=== PATIENT | male | born 1955 | race Caucasian/White ===

== ENCOUNTER 2018-11-18 15:17 | Emergency (ER) | payer MEDICARE, MEDICAID ==
[~2018-11-18] VITALS: Ht 175.3 cm; Wt 77.0 kg
[2018-11-18 16:03] LABS: BASOPHILS % (AUTO) 0.1 % (0-1); EOSINOPHILS # (AUTO) 0.1 X10'3 (0-0.9); EOSINOPHILS % (AUTO) 0.4 % (0-6); HEMOGLOBIN 13.2 g/dl (14.0-17.9); LYMPHOCYTES # (AUTO) 1.2 X10'3 (1.1-4.8); LYMPHOCYTES % (AUTO) 8.1 % (21-51); MEAN CORPUSCULAR HEMOGLOBIN 29.9 PG (27.0-31.0); MEAN CORPUSCULAR HGB CONC 32.9 g/dL (33.0-36.5); MEAN CORPUSCULAR VOLUME 90.7 FL (78-98); MEAN PLATELET VOLUME 8.4 FL (7.4-10.4); MONOCYTES # (AUTO) 1.8 X10'3 (0-0.9); MONOCYTES % (AUTO) 11.8 % (2-12); NEUTROPHILS # (AUTO) 12.1 X10'3 (1.8-7.7); NEUTROPHILS % (AUTO) 79.6 % (42-75); PLATELET COUNT 276 X10'3 (140-440); RED BLOOD COUNT 4.41 X10'6 (4.70-6.10); RED CELL DISTRIBUTION WIDTH 14.2 % (11.5-14.5); WHITE BLOOD COUNT 15.2 X10'3 (4.5-11.0)
[2018-11-18 16:18] LABS: INR 1.1 INR; PARTIAL THROMBOPLASTIN TIME 35 SECONDS (22-32); PROTHROMBIN TIME 11.3 SECONDS (9.0-12.0)
[2018-11-18 16:19] LABS: ALANINE AMINOTRANSFERASE 29 U/L (12-78); ALBUMIN 2.5 G/DL (3.4-5.0); ALBUMIN/GLOBULIN RATIO 0.5 (1.1-1.5); ALKALINE PHOSPHATASE 145 IU/L (46-116); ANION GAP 10 (8-16); ASPARTATE AMINO TRANSFERASE 23 U/L (10-37); BILIRUBIN,TOTAL 0.5 MG/DL (0.1-1.0); BLOOD UREA NITROGEN 40 MG/DL (7-18); BUN/CREATININE RATIO 27.6 (5.4-32.0); CALCIUM 9.3 MG/DL (8.5-10.1); CHLORIDE 103 MMOL/L (99-107); CREATININE 1.45 MG/DL (0.60-1.10); GLUCOSE 94 MG/DL (70-104); POTASSIUM 3.2 MMOL/L (3.5-5.1); SODIUM 139 MMOL/L (135-145); TOTAL CARBON DIOXIDE 25.9 MMOL/L (24-32); TOTAL PROTEIN 7.2 G/DL (6.4-8.2); eGFR 49 ML/MIN
[2018-11-18 16:42] LABS: TOTAL CELLS COUNTED 100
[2018-11-18 16:43] LABS: PLATELET ESTIMATE NORMAL; POIKILOCYTOSIS 1+; TOXIC GRANULATION 3+
[2018-11-18] MEDS ORDERED: ipratropium/albuterol 3ml nebule NEB ONE (18:05)
[2018-11-18] MEDS ORDERED: azithromycin/NS 500mg/250ml 250 ML IV ONE (18:30)
[2018-11-18] MEDS ORDERED: methylPREDNISolone sod succ 125mg/2ml vial IV ONE (18:30)
[2018-11-18] MEDS ORDERED: CefTRIAXone/D5W-Rocephin 1gm 50 ML IV ONE (18:30)
[2018-11-18] MEDS ORDERED: diphenhydrAMINE 50 mg/ml inj IV ONE (18:30)
[2018-11-18 20:35] VITALS: BP 101/60
--- NOTE | 2018-11-18 21:01 | NUR ---
pt tolerated zithromax and rocephin well. no reaction. let dr. melo know.
[2018-11-18] MEDS ORDERED: AZIT-63 PO (21:30)
[2018-11-18] MEDS ORDERED: CEFU500T66 PO (21:30)
== END 2018-11-18 21:47 | disposition home or self-care (01) ==
LOC: ER 15:18
DX: J18.9 Pneumonia, unspecified organism (principal); J44.9 Chronic obstructive pulmonary disease, unspecified; G89.29 Other chronic pain; Z86.73 Personal history of transient ischemic attack (TIA), and cerebral infarction without residual deficits; Z87.891 Personal history of nicotine dependence; Z88.0 Allergy status to penicillin; Z88.7 Allergy status to serum and vaccine; Z88.1 Allergy status to other antibiotic agents
CPT/HCPCS: 36415; 71046; 80053; 84484; 85025; 85610; 85730; 93005; 94640; 94760; 96365; 96366; 96368; 96375; 99284; J0456; J0696; J1200; J2930

== ENCOUNTER 2019-01-07 15:21 | Emergency (ER) | payer MEDICARE, MEDICAID ==
[~2019-01-07] VITALS: Ht 172.7 cm; Wt 81.8 kg
[~2019-01-07 15:21] MED LIST: CEFU500T66 PO
[2019-01-07 15:58] LABS: BASOPHILS # (AUTO) 0.1 X10'3 (0-0.2); BASOPHILS % (AUTO) 1.3 % (0-1); EOSINOPHILS # (AUTO) 0.7 X10'3 (0-0.9); EOSINOPHILS % (AUTO) 11.4 % (0-6); HEMATOCRIT 39.2 % (42.0-52.0); LYMPHOCYTES # (AUTO) 1.5 X10'3 (1.1-4.8); LYMPHOCYTES % (AUTO) 25.3 % (21-51); MEAN CORPUSCULAR HEMOGLOBIN 30.1 PG (27.0-31.0); MEAN CORPUSCULAR HGB CONC 33.2 g/dL (33.0-36.5); MEAN CORPUSCULAR VOLUME 90.5 FL (78-98); MEAN PLATELET VOLUME 7.9 FL (7.4-10.4); MONOCYTES # (AUTO) 0.6 X10'3 (0-0.9); MONOCYTES % (AUTO) 9.9 % (2-12); NEUTROPHILS # (AUTO) 3.1 X10'3 (1.8-7.7); NEUTROPHILS % (AUTO) 52.1 % (42-75); PLATELET COUNT 201 X10'3 (140-440); RED BLOOD COUNT 4.33 X10'6 (4.70-6.10); RED CELL DISTRIBUTION WIDTH 15.1 % (11.5-14.5)
[2019-01-07 16:14] LABS: ALANINE AMINOTRANSFERASE 27 U/L (12-78); ALBUMIN 3.7 G/DL (3.4-5.0); ALBUMIN/GLOBULIN RATIO 1.1 (1.1-1.5); ALKALINE PHOSPHATASE 82 IU/L (46-116); ANION GAP 8 (8-16); ASPARTATE AMINO TRANSFERASE 18 U/L (10-37); BILIRUBIN,TOTAL 0.3 MG/DL (0.1-1.0); BLOOD UREA NITROGEN 16 MG/DL (7-18); BUN/CREATININE RATIO 15.8 (5.4-32.0); CALCIUM 8.8 MG/DL (8.5-10.1); CHLORIDE 105 MMOL/L (99-107); CREATININE 1.01 MG/DL (0.60-1.10); GLUCOSE 89 MG/DL (70-104); POTASSIUM 3.9 MMOL/L (3.5-5.1); SODIUM 138 MMOL/L (135-145); TOTAL CARBON DIOXIDE 24.7 MMOL/L (24-32); TOTAL PROTEIN 7.2 G/DL (6.4-8.2); eGFR 75 ML/MIN
[2019-01-07 16:17] LABS: PARTIAL THROMBOPLASTIN TIME 29 SECONDS (22-32)
[2019-01-07] MEDS ORDERED: ipratropium/albuterol 3ml nebule NEB ONE (17:00)
[2019-01-07] MEDS ORDERED: azithromycin 250mg tablet PO ONE (17:00)
[2019-01-07] MEDS ORDERED: methylPREDNISolone sod succ 125mg/2ml vial IM ONE (17:00)
--- NOTE | 2019-01-07 18:26 | NUR ---
DR COEP AT BEDSIDE FOR REEVAL. PT REPROTS HE IS FEELING BETTER AND HAS NEB TREATMENT AND ALL OF HIS MEDS AT HOME.
[2019-01-07 18:27] VITALS: BP 121/77
[2019-01-07] MEDS ORDERED: PRED20TA PO (18:29)
[2019-01-07] MEDS ORDERED: AZIT-63 PO (18:29)
== END 2019-01-07 18:41 | disposition home or self-care (01) ==
LOC: ER 15:21
DX: J44.1 Chronic obstructive pulmonary disease with (acute) exacerbation (principal); G89.29 Other chronic pain; Z86.73 Personal history of transient ischemic attack (TIA), and cerebral infarction without residual deficits; Z88.1 Allergy status to other antibiotic agents; Z88.0 Allergy status to penicillin; Z88.2 Allergy status to sulfonamides; Z88.7 Allergy status to serum and vaccine; Z88.8 Allergy status to other drugs, medicaments and biological substances
CPT/HCPCS: 36415; 71045; 80053; 83880; 84484; 85025; 85610; 85730; 93005; 94640; 94760; 96372; 99284; J2930

== ENCOUNTER → 2024-12-06 | Outpatient (CLI) | payer MEDICARE, MEDICAID ==
--- NOTE | 2024-12-06 13:23 | RADIOLOGY REPORT ---
CLINICAL INFORMATION: 69 years old, Male; PAIN IN RIGHT SHOULDER. TECHNIQUE: Multisequence multiplanar MRI images of the right shoulder were obtained without contras t. COMPARISON: None FINDINGS: Acromioclavicular joint: There is [id number] acromioclavicular hypertrophy and [id number] edema. There is Type 2 acromion. Moderate fluid in the subacromial / subdeltoid bursa. Rotator cuff tendons: Full-thickness complete tears of the supraspinatus and infraspinatus tendons fr om their insertions, with retraction of torn tendon fibers to the level of the glenohumeral joint. Se verely attenuated distal supraspinatus tendon involving the mid to distal fibers, likely due to near full-thickness articular surface tear with possible full-thickness components motion artifact limits evaluation. The more caudal fibers of the distal subscapularis tendon remain intact at the lesser tub erosity insertion. Teres minor tendon appears intact. Biceps tendon: No significant tendinosis. No evidence of attrition or tear. Labrum: Motion artifact limits evaluation. Fraying of the superior posterior superior labrum. Bones: No fracture or focal marrow contusion. Moderate to severe osteoarthritic changes of the glenoh umeral joint with joint space narrowing and subchondral cystic change. There is superior subluxation of the humeral head relative to the glenoid and loss of the acromial humeral interval due to the rota tor cuff tears. Muscles: Moderate volume loss and fatty atrophy of the supraspinatus and infraspinatus muscles. Marke d fatty atrophy of the subscapularis muscle. Other: Motion artifact limits evaluation IMPRESSION: 1. Motion limited study. 2. Full-thickness complete tears of the supraspinatus and infraspinatus tendons. 3. Near full-thickness articular surface tear of the distal subscapularis tendon, with possible full- thickness components. Poorly evaluated due to motion artifact 4. [id number] acromioclavicular hypertrophy. 5. Likely fraying of the superior and posterior superior labrum. 6. Osteoarthritic changes of the glenohumeral joint and additional findings as detailed above
== END | disposition home or self-care (01) ==
LOC: MRI02 12:09
PROVIDERS: ATTEND Pediatrics Sports Medicine
DX: M19.011 Primary osteoarthritis, right shoulder (principal); M75.121 Complete rotator cuff tear or rupture of right shoulder, not specified as traumatic; M89.311 Hypertrophy of bone, right shoulder; M25.511 Pain in right shoulder
CPT/HCPCS: 73221